=== PATIENT | female | born 1945 | race Caucasian/White ===

== ENCOUNTER 2018-07-09 14:01 | Emergency (ER) | payer OTHER, MEDICARE ==
[2018-07-09] MEDS ORDERED: ONDANSETRON 4 MG/2 ML VIAL IVP ONE (14:26)
--- NOTE | 2018-07-09 14:37 | EDPHY ---
H & P Stated Complaint: fever, cough, n/v Time Seen by Provider: 07/09/18 14:26 HPI/ROS: CHIEF COMPLAINT: Nausea, vomiting, cough and fever HISTORY OF PRESENT ILLNESS: Patient presents the ED with 3 day history of nausea, vomiting, cough and fever. She reports her daughter is sick with similar symptoms. The patient did get a flu shot this year. She complains of a mild frontal headache and associated mild diffuse arthralgias. The patient denies acute abdominal pain. She denies any skin rash. She denies any recent antibiotic use or travel outside the [place]. Her symptoms are mild to moderate in nature. She last vomited last night. REVIEW OF SYSTEMS: A comprehensive 10 point review of systems is otherwise negative aside from elements mentioned in the history of present illness. Source: Patient Exam Limitations: No limitations - Personal History Current Tetanus/Diphtheria Vaccine: Unsure Current Tetanus Diphtheria and Acellular Pertussis (TDAP): Unsure - Medical/Surgical History Hx Asthma: No Hx Chronic Respiratory Disease: No Hx Diabetes: No Hx Cardiac Disease: No Hx Renal Disease: No Hx Cirrhosis: No Hx Alcoholism: No Hx HIV/AIDS: No Hx Splenectomy or Spleen Trauma: No Other PMH: HTN, kidney stones, Lumbar fusion, jeana, appy, salivary gland CA - Social History Smoking Status: Former smoker - Physical Exam Exam: General Appearance: Alert, no distress Eyes: Pupils equal and round no pallor or injection ENT, Mouth: Mucous membranes moist Respiratory: Rhonchorous breath sounds bilaterally Cardiovascular: Regular rate and rhythm Gastrointestinal: Abdomen is soft and nontender, no masses, bowel sounds normal Neurological: 5/5 strength all 4 extremities Skin: Warm and dry, no rashes Musculoskeletal: Neck is supple nontender Extremities: symmetrical, full range of motion Constitutional: Initial Vital Signs Temperature (C) 36.8 C 07/09/18 14:17 Heart Rate 99 07/09/18 14:17 Respiratory Rate 16 07/09/18 14:17 Blood Pressure 158/91 H 07/09/18 14:17 O2 Sat (%) 86 L 07/09/18 14:17 O2 Delivery Mode Room Air O2 (L/minute) 2 Allergies/Adverse Reactions: Penicillins Allergy (Severe, Verified 07/09/18 14:16) HIVES, SHORT OF BREATH diazepam [From Valium] Allergy (Intermediate, Verified 07/09/18 14:16) MAKES HER CRY Sulfa (Sulfonamide Antibiotics) Allergy (Intermediate, Verified 07/09/18 14:16) Rash ADHESIVES Allergy (Intermediate, Uncoded 07/09/18 14:16) BLISTERS Home Medications: Medication Instructions Recorded Advil 07/09/18 Hydrocodone-Acetamin 10-300 mg 07/09/18 Hydrocodone/APAP 5/325 [Argyle 1 - 2 each PO Q6 PRN #20 tab 07/09/18 5/325] Lisinopril 07/09/18 Ondansetron Odt [Zofran Odt] 4 mg PO Q4PRN PRN #20 tab 07/09/18 Medical Decision Making - Diagnostics Imaging Results: Imaging Impressions Chest X-Ray 07/09/18 14:34 Impression: No pneumonia. Mild airways disease and bibasilar linear atelectasis. ED Course/Re-evaluation: Patient presents the ED with flu-like symptoms for the past 5 days. She is nontoxic well-appearing. She has slight hypoxemia which corrects with 2 L nasal cannula oxygen. Her chest x-ray demonstrates no evidence of significant infiltrate. Patient was treated with IV fluids in the emergency department. She is not a candidate for Tamiflu given the duration of her symptoms. The patient was offered admission to the hospital in a setting for hypoxemia however is quite adamant about wanting to go home on home oxygen follow up with her primary care provider. I feel this is reasonable. Respiratory therapy was consulted to help establish home oxygen for the patient. Patient will be discharged home with instructions to use Zofran as needed for nausea. She used to use home oxygen and schedule a follow-up appointment with her primary care provider for a O2 recheck within the week. She understands return to the ED for markedly worsening symptoms or other concerns. She understands that she can return any time should she reconsider decision not to be admitted to the hospital. The patient is also given a prescription for albuterol. Differential Diagnosis: Differential diagnosis considered includes asthma, bronchitis, pneumonia, influenza - Data Points Laboratory Results: Laboratory Results 07/09/18 14:56 07/09/18 14:56 07/09/18 07/09/18 07/09/18 14:56 14:56 14:56 WBC 6.26 10^3/uL 10^3/uL (3.80-9.50) RBC 5.32 10^6/uL 10^6/uL (4.18-5.33) Hgb 15.3 g/dL g/dL (12.6-16.3) Hct 46.2 % % (38.0-47.0) MCV 86.8 fL fL (81.5-99.8) MCH 28.8 pg pg (27.9-34.1) MCHC 33.1 g/dL g/dL (32.4-36.7) RDW 13.0 % % (11.5-15.2) Plt Count 324 10^3/uL 10^3/uL (150-400) MPV 9.7 fL fL (8.7-11.7) Neut % (Auto) 67.6 % % (39.3-74.2) Lymph % (Auto) 19.5 % % (15.0-45.0) Duc[place]ne % (Auto) 11.3 % % (4.5-13.0) Eos % (Auto) 1.0 % % (0.6-7.6) Baso % (Auto) 0.3 % % (0.3-1.7) Nucleat RBC Rel Count 0.0 % % (0.0-0.2) Absolute Neuts (auto) 4.23 10^3/uL 10^3/uL (1.70-6.50) Absolute Lymphs (auto) 1.22 10^3/uL 10^3/uL (1.00-3.00) Absolute Monos (auto) 0.71 10^3/uL 10^3/uL (0.30-0.80) Absolute Eos (auto) 0.06 10^3/uL 10^3/uL (0.03-0.40) Absolute Basos (auto) 0.02 10^3/uL 10^3/uL (0.02-0.10) Absolute Nucleated RBC 0.00 10^3/uL 10^3/uL (0-0.01) Immature Gran % 0.3 % % (0.0-1.1) Immature Gran # 0.02 10^3/uL 10^3/uL (0.00-0.10) Sodium 136 mEq/L mEq/L (135-145) Potassium 4.0 mEq/L mEq/L (3.5-5.2) Chloride 103 mEq/L mEq/L (97-110) Carbon Dioxide 26 mEq/l mEq/l (22-31) Anion Gap 7 mEq/L mEq/L (6-14) BUN 11 mg/dL mg/dL (7-23) Creatinine 0.5 mg/dL L mg/dL (0.6-1.0) Estimated GFR > 60 Glucose 97 mg/dL mg/dL (70-100) Calcium 8.8 mg/dL mg/dL (8.5-10.4) Nasal Influenza A PCR FLU A DETECTED H (NEGATIVE) Nasal Influenza B PCR NEGATIVE FOR FLU B (NEGATIVE) Medications Given: Discontinued Medications Albuterol/Ipratropium (Duoneb) 3 ml IH EDNOW ONE Stop: 07/09/18 15:15 Last Admin: 07/09/18 15:43 Dose: 3 ml Ondansetron HCl (Zofran) 4 mg IVP EDNOW ONE Stop: 07/09/18 14:27 Last Admin: 07/09/18 15:43 Dose: 4 mg Departure - Departure Disposition: Home, Routine, Self-Care Clinical Impression: Influenza A Condition: Good Instructions: Influenza (ED) Additional Instructions: 1. Please use albuterol inhaler up to every 2 hr as needed for cough and shortness of breath. 2. Follow up with her primary care provider within the next week for a oxygen recheck. 3. Zofran as needed for nausea. 4. Please return to the ED for worsening symptoms or should you reconsider your decision not to be admitted to the hospital this evening. Referrals: iKana Sumner MD [Primary Care Provider] - As per Instructions
[2018-07-09 15:11] LABS: PLATELET COUNT 324 10^3/uL (150-400)
[2018-07-09] MEDS ORDERED: IPRATROPIUM/ALBUTEROL 3 ML DEYVIAL IH ONE (15:14)
--- NOTE | 2018-07-09 16:23 | PDHOMEO2F ---
Home Oxygen Face to Face Home Orders: I certify that a physician or a nurse practitioner or physician's speech assistant has had a [id number] encounter with this patient on the date of this order due to the diagnosis listed, which relates to the primary reason the patient requires home oxygen. Alternative treatments have been tried, or considered, and deemed ineffective. It is anticipated that supplemental oxygen will result in improvement with treatment. Home oxygen qualifying diagnosis: Influenza, hypoxemia SpO2 on room air (%): 85 Frequency of home oxygen needed: continuous Home oxygen liters per minute: 2 Home oxygen delivery device: nasal cannula Concentrator: Yes E-tanks for mobility and back up: Yes If ordering portable O2, is the patient mobile in the home?: Yes I certify that, based on these findings, the home oxygen is medically necessary for this patient for the following length of time. Length of time home oxygen needed: 1 week
[2018-07-09 17:52] VITALS: BP 137/76
== END 2018-07-09 17:52 | disposition home or self-care (01) ==
DX: J09.X2 Influenza due to identified novel influenza A virus with other respiratory manifestations (principal); R09.02 Hypoxemia; I10 Essential (primary) hypertension
CPT/HCPCS: 71046; 96374; 99284; J2405